=== PATIENT | male | born 1955 | race Caucasian/White ===

== ENCOUNTER → 2019-08-20 | Outpatient (CLI) | payer MEDICARE | END | disposition home or self-care (01) | LOC: LABPAT 15:43 | PROVIDERS: ATTEND Orthopaedic Surgery | DX: Z01.812 Encounter for preprocedural laboratory examination (principal) | CPT/HCPCS: 87070 ==

== ENCOUNTER → 2019-08-31 | Outpatient (CLI) | payer MEDICARE ==
[2019-08-31 11:19] LABS: Basophils % (A) 1 %; Eosinophils # (A) 0.1 k/uL (0-0.7); Eosinophils % (A) 3 %; HCT 39.4 % (39.0-53.0); HGB 13.8 gm/dL (13.0-17.5); Lymphocytes # (A) 0.8 k/uL (1.0-4.8); Lymphocytes % (A) 20 %; MCH 30.1 pg (25.0-35.0); MCHC 35.1 g/dL (31.0-37.0); MCV 85.7 fL (80.0-100.0); Monocytes # (A) 0.2 k/uL (0-1.0); Monocytes % (A) 6 %; Neutrophils # (A) 2.7 k/uL (1.3-7.7); Neutrophils % (A) 69 %; Platelet Count 175 k/uL (150-450); RBC 4.59 m/uL (4.30-5.90); RDW 13.2 % (11.5-15.5); WBC 3.9 k/uL (3.8-10.6)
[2019-08-31 11:21] LABS: ALT 35 U/L (21-72); AST 23 U/L (17-59); African American GFR (CKD) >90 (>60 ml/min/1.73 sqM); Albumin 4.4 g/dL (3.5-5.0); Alkaline Phosphatase 36 U/L (38-126); Anion Gap 8 mmol/L; Blood Urea Nitrogen 22 mg/dL (9-20); Calcium 9.7 mg/dL (8.4-10.2); Carbon Dioxide 29 mmol/L (22-30); Chloride 104 mmol/L (98-107); Glucose 94 mg/dL (74-99); Potassium 4.2 mmol/L (3.5-5.1); Sodium 141 mmol/L (137-145); Total Bilirubin 0.8 mg/dL (0.2-1.3); Total Protein 7.9 g/dL (6.3-8.2)
[2019-08-31 11:27] LABS: Prothrombin Time 10.6 sec (9.0-12.0)
[2019-08-31 11:29] LABS: Appearance,Urine Clear (Clear); Bilirubin,Urine Negative (Negative); Blood,Urine Negative (Negative); Color,Urine Yellow; Glucose,Urine (UA) Negative (Negative); Ketones,Urine Negative (Negative); Leukocyte Esterase,Urine Negative (Negative); Nitrite,Urine Negative (Negative); PH, Urine 5.5 (5.0-8.0); Protein,Urine Negative (Negative); Specific Gravity,Urine 1.025 (1.001-1.035); Urobilinogen,Urine <2.0 mg/dL (<2.0)
[2019-08-31 17:08] LABS: Hemoglobin A1C 5.4 % (4.0-6.0)
== END | disposition home or self-care (01) ==
LOC: LABWHC1 09:51
PROVIDERS: ATTEND Nurse Practitioner Family
DX: E11.9 Type 2 diabetes mellitus without complications (principal); Z79.01 Long term (current) use of anticoagulants
CPT/HCPCS: 36415; 80053; 81003; 83036; 85025; 85610

== ENCOUNTER 2019-09-08 06:44 | Inpatient (IN) | payer MEDICARE ==
[2019-09-02 16:09] VITALS: BMI 32.6
--- NOTE | 2019-09-07 15:25 | HP ---
HISTORY AND PHYSICAL CHIEF COMPLAINT: Left hip pain. HISTORY OF PRESENT ILLNESS: The patient is a 63-year-old retired gentleman who presents with progressive left hip pain for the past couple of years. It has worsened recently. He is having groin and thigh pain, worse with weightbearing activities. He has tried medications without much relief. He notes he has been limping. PAST MEDICAL HISTORY: Significant for arthritis, hypertension, pql-cusgpke-edaykurrq diabetes. PAST SURGICAL HISTORY: Significant for previous right shoulder fracture fixation. CURRENT MEDICATIONS: Lisinopril, Norvasc, Pravachol, and metformin. He denies drug allergies. FAMILY HISTORY: Significant for renal disease, diabetes, and hypertension. SOCIAL HISTORY: Negative for current tobacco or alcohol use. REVIEW OF SYSTEMS: A 16-point review of systems otherwise reviewed and is noncontributory. PHYSICAL EXAMINATION: On examination, patient is approximately 6 foot tall, 241 pounds of endomorphic habitus. HEENT: Exam is nonfocal. NECK: Supple. Passive motion left hip, flexion 50 degrees, external rotation with the hip flexed 50 degrees, internal rotation -10 degrees with pain. He is tender about the anterior aspect of his left hip. Clinically, he has 1 cm shortening left lower extremity compared to the right. He has a positive Trendelenburg gait. His distal neurovascular exam appears intact in left lower extremity. AP of the pelvis obtained in the office show severe left hip osteoarthrosis with bone- on-bone changes. IMPRESSION: 1. Left hip severe osteoarthrosis. 2. Increased body mass index. 3. Non xov-gqinisi-jnnyvlwdk diabetes. RECOMMENDATIONS: I talked to the patient at length regarding his condition along with treatment options. After a thorough discussion, he opts to proceed with surgery. We will plan to proceed with left total hip arthroplasty utilizing a direct anterior approach. Risks and benefits were discussed at length in layman's terms. We will institute DVT prophylaxis postoperatively. The patient underwent preoperative medical evaluation by Dr. Junior. RAMÓN / PAULINE: [id number] /
[~2019-09-08 06:44] MED LIST: ACETAMINOPHEN TAB 500 MG TAB PO ONE; DEXAMETHASONE SOD PHOSPHATE 10 MG/ML 1 ML VIAL IV ONE; HYDROmorphone 0.5 MG/0.5 ML SYRINGE IVP PRN; MELOXICAM 7.5 MG TAB PO ONE; MIDAZOLAM 2 MG/2 ML VIAL IV PRN; ONDANSETRON 4 MG/2 ML VIAL IVP ONE; SCOPOLAMINE 1.5MG/72HR PATCH TRANSDERM ONE; TRANEXAMIC ACID 1,000 MG in SODIUM CHLORIDE 0.9% 100 ML IVPB ONE
[2019-09-08] MEDS ORDERED: LIDOCAINE 1% 20 ML VIAL (10MG/ML) FOR IV START INTRADERMA ONE (07:40)
[2019-09-08 07:44] LABS: Glucose,Whole Blood 94 mg/dL (75-99)
[2019-09-08] MEDS: LACTATED RINGERS 1,000 ML IV SCH (07:45)
[2019-09-08] MEDS ORDERED: MIDAZOLAM 2 MG/2 ML VIAL ONE (08:00)
[2019-09-08] MEDS ORDERED: HEPARIN SODIUM,PORCINE 10,000 UNIT/ML 1 ML VIAL ONE (08:00)
[2019-09-08] MEDS ORDERED: fentaNYL (PF) 50 MCG/ML 2 ML AMP ONE (08:00)
[2019-09-08] MEDS ORDERED: SODIUM CHLORIDE 0.9% 100 ML BAG ONE (08:00)
[2019-09-08] MEDS ORDERED: SODIUM CHLORIDE 0.9% IRRIG 1,000 ML BTL IRRIGATION ONE (08:00)
[2019-09-08] MEDS ORDERED: TRANEXAMIC ACID 1,000 MG/10 ML VIAL ONE (08:00)
[2019-09-08] MEDS ORDERED: ePHEDrine SULFATE/0.9% NACL/PF 50 MG/5 ML SYRINGE IV ONE (08:00)
[2019-09-08] MEDS ORDERED: PHENYLEPHRINE-0.9% NACL SYG 1 MG/10 ML SYRINGE ONE (08:00)
[2019-09-08] MEDS ORDERED: PROPOFOL 10 MG/ML 20 ML VIAL IV ONE (08:00)
[2019-09-08] MEDS ORDERED: ceFAZolin 3,000 MG in SODIUM CHLORIDE 0.9% IRRIGATIO 3,000 ML IRRIGATION ONE (09:09)
[2019-09-08] MEDS ORDERED: LACTATED RINGERS 1,000 ML IV ONE (09:27)
[2019-09-08] MEDS ORDERED: HYDROcodone/APAP 5-325MG 1 EACH TAB PO PRN ×2 (10:35)
[2019-09-08] MEDS ORDERED: MAGNESIUM HYDROXIDE 2,400 MG/10 ML CUP PO PRN (10:35)
[2019-09-08] MEDS ORDERED: HYDROmorphone 1 MG/ML 1 ML SYRINGE IVP PRN (10:35)
[2019-09-08] MEDS ORDERED: HYDROmorphone 0.5 MG/0.5 ML SYRINGE IVP PRN (10:35)
[2019-09-08] MEDS ORDERED: NALOXONE 0.4 MG/ML 1 ML VIAL IV PRN (10:35)
[2019-09-08] MEDS ORDERED: traMADol 50 MG TAB PO PRN (10:35)
[2019-09-08] MEDS ORDERED: ONDANSETRON 4 MG/2 ML VIAL IVP PRN (10:35)
--- NOTE | 2019-09-08 11:00 | P.OP ---
Date of Procedure: 09/08/19 Preoperative Diagnosis: Severe left hip osteoarthrosis Postoperative Diagnosis: Same Procedure(s) Performed: Left total hip arthroplastyanterior approachpress-fit Implants: Depuy Corail size 12 standard press-fit collared femoral stem, 36 mm +5 cobalt chrome femoral head, 58 mm [place] acetabular shell with neutral polyethylene liner. Anesthesia: spinal Surgeon: Rick Vieira [employer] Operator #1: Marc Knott Estimated Blood Loss (ml): 600 Pathology: other (Femoral head) Condition: stable Disposition: PACU Indications for Procedure: The patient's a 63-year-old male who presents with progressive left hip pain secondary osteoarthrosis despite conservative measures. A discussion of the risks and benefits of operative intervention versus continued conservative measures was made with the patient. He opted to proceed with surgery. Operative risks to include infection, neurovascular injury, development of blood clots, possible fracture, leg length discrepancy, possible component loosening, possible instability and need for subsequent procedures was discussed. Informed consent was obtained. Operative Findings: As below Description of Procedure: The patient was brought to the operating room, and after induction of spinal anesthesia was placed supine on the Roxy table. Positioning was checked with fluoroscopy. The left hip was then prepped and draped in a normal fashion. A 12 cm incision was then made starting 2 fingerbreadths distal and 3 finger breaths posterior to the ASIS in line with the proximal femur. The skin was incised sharply. Subcutaneous tissues were divided sharply. Electrocautery was used for hemostasis. The fascia was split in line with skin incision. The interval between the sartorius and tensor fascia willow was then bluntly developed. The posterior fascia was opened with electrocautery. The lateral circumflex vessels were identified and cauterized prior to sectioning. A retractor was placed along the superior femoral neck as well as the anterior acetabular rim. A wide capsulotomy was performed. The neck cut was then made at a 45 angle to the shaft approximately 1 1/2 cm above the level of the lesser trochanter. The head was extracted. Attention was then paid towards preparing the acetabular. Anterior and posterior retractors were placed. The remaining capsular labral tissue sharply debrided clearly defining the acetabular margins. I began reaming with a 51 mm reamer taking care to initially medialize then reaming at 45 of abduction and 20 of anteversion. Sequential reaming is performed up to 57 mm. A trial D8 mm acetabular shell was inserted in the same orientation and was fully seated. There was good rim fit and stability. Positioning was checked with fluoroscopy. The final the eighth mm acetabular shell was inserted again at 45 of abduction and 20 of anteversion. This was fully seated. There was good rim fit and stability. Again fluoroscopy was used to check the adequacy of placement. A 6.5 mm x 30 mm cancellus screws placed posterior superior with good purchase. A neutral polyethylene liner was gently impacted. Care was taken to avoid any soft tissue interposition. Pulsatile lavage was utilized. Attention was then paid towards preparing the proximal femur. The central region was cleared of soft tissue. A canal finder was used to find the femoral canal. Sequential broaching was performed up to size 12 taking care to lateralize proximally. A calcar mill was used to fashion the medial calcar. There was good rotational stability. A standard neck along with a 36 mm +5 femoral head was placed. The hip was gently reduced. Fluoroscopy was used to check the adequacy of positioning along with leg lengths. I felt both were good. The hip was gently dislocated. The trial components were removed. The final size 12 collared standard press-fit femoral stem was inserted parallel to the posterior cortex. This was fully seated and there was good rotational stability. A 36 mm +5 cobalt chrome femoral head was placed. This was gently impacted. The hip was then gently reduced. Final fluoroscopic view showed adequate placement implant along with sabianist of leg length. Stability was checked with 80 of external rotation and 60 of extension of the right hip. The wound was irrigated with sterile lavage. The fascia was closed with running 0 Vicryl suture. There was minimal drainage therefore a deep drain was not placed. The second dose of IV TXA was given. The subcutaneous tissues were reapproximated interrupted 2-0 Vicryl sutures. The skin was reapproximated with 3-0 subcuticular strata fix suture. Skin tape and adhesive was applied. A sterile dressing was applied. The patient was then awoken from sedation and transferred to recovery room in good condition. Blood loss was estimated at 600 mL. 240 mL of Cell Saver was given back to the patient. No complications were incurred. Sponge and needle counts were correct at the end of the case. Jaydon GONZALEZ assisted during the major components is case to include exposure, bone resection, implantation, and closure.
[2019-09-08 11:06] LABS: Glucose,Whole Blood 107 mg/dL (75-99)
--- NOTE | 2019-09-08 11:21 | XR ---
EXAMINATION TYPE: XR Hip Limited LT DATE OF EXAM: 09/08/2019 CLINICAL HISTORY: Left hip pain and osteoarthritis. TECHNIQUE: Single AP portable view of left hip is obtained immediately postoperatively. COMPARISON: None. FINDINGS: Metallic hardware from left hip arthroplasty is seen and appears satisfactory in alignment and position. There is evidence of recent surgery with subcutaneous gas noted laterally. IMPRESSION: Metallic hardware from left hip arthroplasty is satisfactory in position.
[2019-09-08] MEDS: INSULIN ASPART (NovoLOG) 100 UNIT/ML VIAL SQ SCH ×4 (12:55→20:08)
--- NOTE | 2019-09-08 13:23 | XR ---
Limited left hip HISTORY: Anterior hip replacement 2 intraoperative C-arm images document the procedure.
--- NOTE | 2019-09-08 13:28 | FL ---
Fluoroscopy HISTORY: Anterior hip replacement 49 seconds fluoroscopy time supplied to the referring clinician. 2 intraoperative C-arm images docum ent the procedure. See dictated report from orthopedic surgery.
--- NOTE | 2019-09-08 14:27 | P.CONS ---
History of Present Illness - Reason for Consult Consult date: 09/08/19 Medical management - History of Present Illness This is a 63-year-old male patient of Dr. Messer with past medical history of hypertension, diabetes mellitus type 2. Patient has been brought into the hospital under the care of Dr. Vieira status post left hip arthroplasty, anterior approach. Patient states that his pain currently is well-controlled. He has had no nausea or vomiting. He is taking liquids without problems. Patient has been started on [place] and Dilaudid for pain control. PT and OT are in place. Xarelto in place for DVT prophylaxis. Patient is currently using incentive spirometry. Review of Systems Constitutional: Denies anorexia, Denies chills, Denies fatigue, Denies fever, Denies lethargy, Denies malaise, Denies poor appetite, Denies sweats Eyes: denies blurred vision, denies pain Ears, nose, mouth and throat: Denies dental pain, Denies dysphagia, Denies headache, Denies mouth pain, Denies nasal congestion, Denies nasal discharge, Denies sore throat, Denies vertigo Cardiovascular: Denies chest pain, Denies dyspnea on exertion, Denies edema, Denies leg edema, Denies lightheadedness, Denies orthopnea, Denies shortness of breath, Denies syncope Respiratory: Denies cough, Denies cough with sputum, Denies dyspnea, Denies excessive sputum, Denies hemoptysis, Denies home oxygen, Denies wheezing Gastrointestinal: Denies abdominal pain, Denies diarrhea, Denies loss of appetite, Denies nausea, Denies vomiting Genitourinary: Denies dysuria, Denies urinary frequency, Denies urinary retention Musculoskeletal: Denies frequent falls, Denies gait dysfunction, Denies muscle weakness, Denies myalgias Musculoskeletal: left: hip pain Integumentary: Reports wounds, Denies pruritus, Denies rash Neurological: Denies change in mentation, Denies change in speech, Denies gait dysfunction, Denies numbness, Denies seizures, Denies weakness Psychiatric: Denies anxiety, Denies depression Endocrine: Denies fatigue, Denies weight change Past Medical History Past Medical History: Diabetes Mellitus, GERD/Reflux, Hyperlipidemia, Hypertension, Osteoarthritis (OA) Additional Past Medical History / Comment(s): "borderline diabetic", History of Any Multi-Drug Resistant Organisms: None Reported Past Surgical History: Orthopedic Surgery Additional Past Surgical History / Comment(s): rt shoulder surgery, Past Anesthesia/Blood Transfusion Reactions: No Reported Reaction Past Psychological History: No Psychological Hx Reported Smoking Status: Never smoker Past Alcohol Use History: None Reported Additional Past Alcohol Use History / Comment(s): Patient is a lifelong nonsmoker, no illicit drug use, no alcohol use. Patient lives at home with significant other. Past Drug Use History: None Reported - Past Family History Mother Family Medical History: Cancer Additional Family Medical History / Comment(s): Mother is with history of coronary artery disease and diabetes. Father Additional Family Medical History / Comment(s): Father is with history of coronary artery disease and diabetes. Patient's 1 sister with no major medical problems and one brother with no major medical problems. Patient does not have any children. Medications and Allergies Home Medications Medication Instructions Recorded Confirmed Type Acetaminophen [Tylenol Extra 500 - 1,000 mg PO Q6HR PRN 09/02/19 09/08/19 History Strength] Cinnamon Bark [Cinnamon] 500 mg PO HS 09/02/19 09/08/19 History Glucosam/Chond/Hyalu/Cf Borate 1 each PO HS 09/02/19 09/08/19 History [Move Free Joint Health Tablet] Lisinopril-Hctz 20-25 mg 1 tab PO DAILY 09/02/19 09/08/19 History [Zestoretic 20-25] Pravastatin Sodium [Pravachol] 40 mg PO HS 09/02/19 09/08/19 History amLODIPine [Norvasc] 5 mg PO PC-SUPPER 09/02/19 09/08/19 History metFORMIN HCL 500 mg PO BID 09/02/19 09/08/19 History Allergies Allergy/AdvReac Type Severity Reaction Status Date / Time No Known Allergies Allergy Verified 09/08/19 07:02 Physical Exam Vitals: Vital Signs Temp Pulse Pulse Resp BP BP Pulse Ox 09/08/19 12:15 97.8 F 46 L 12 121/66 97 09/08/19 11:45 62 16 125/69 94 L 09/08/19 11:30 65 16 125/70 95 09/08/19 11:15 62 16 117/59 93 L 09/08/19 11:00 67 16 124/67 96 09/08/19 10:52 97.1 F L 64 14 116/63 96 09/08/19 07:07 97.6 F 66 18 114/70 97 Intake and Output 09/07/19 09/08/19 09/08/19 22:59 06:59 14:59 Intake Total 1875 Output Total 600 Balance 1275 Intake: IV 1875 Output: Estimated Blood Loss 600 Other: Weight 107.955 kg Gen: This is a 63-year-old male. Patient is resting bed and appears to become 12 and in no acute distress. HEENT: Head is atraumatic, normocephalic. Pupils equal, round. Sclerae is anicteric. NECK: Supple. No JVD. No lymphadenopathy. No thyromegaly. LUNGS: Clear to auscultation. No wheezes or rhonchi. No intercostal retractions. HEART: Regular rate and rhythm. No murmur. ABDOMEN: Soft. Bowel sounds are present. No masses. No tenderness. EXTREMITIES: No pedal edema. No calf tenderness. Dressing in place an ice pack to the left hip area, no breakthrough bleeding or drainage. Dorsalis pedis +2 bilaterally. NEUROLOGICAL: Patient is awake, alert and oriented x3. Cranial nerves 2 through 12 are grossly intact. Results Labs: Abnormal Lab Results - Last 24 Hours (Table) 09/08/19 Range/Units 11:00 POC Glucose (mg/dL) 107 H (75-99) mg/dL Assessment and Plan Plan: 1. Osteoarthritis status post left hip arthroplasty, anterior approach. Continue current pain management, Xarelto for DVT prophylaxis, incentive spirometry to reduce incidence of atelectasis and hospital-acquired pneumonia. 2. Hypertension. Continue amlodipine 5 mg at supper with parameters. Hold lisinopril/hydrochlorothiazide. 3. Diabetes mellitus type 2. Accu-Cheks, NovoLog scale. Metformin on hold. 4. DVT prophylaxis. Xarelto. 5. GI prophylaxis. Pepcid. Discharge plan: Patient is interested in rehab at [facility] and would like more in formation. Social work consult placed. Anticipate discharge tomorrow Impression and plan of care have been directed as dictated by the signing physician. Yara Lazo nurse practitioner acting as scribe for signing physician.
[2019-09-08 18:12] LABS: Glucose,Whole Blood 224 mg/dL (75-99)
[2019-09-08] MEDS ORDERED: amLODIPine 5 MG TAB PO SCH (18:30)
[2019-09-08] MEDS: metFORMIN 500 MG TAB PO SCH (20:02)
[2019-09-08 20:14] LABS: Glucose,Whole Blood 252 mg/dL (75-99)
[2019-09-08] MEDS ORDERED: SENNOSIDES-DOCUSATE SODIUM 1 EACH TAB PO SCH (21:00)
[2019-09-08] MEDS ORDERED: PRAVASTATIN SODIUM 40 MG TAB PO SCH (21:00)
[2019-09-08] MEDS: ACETAMINOPHEN TAB 325 MG TAB PO PRN (23:26)
[2019-09-09] MEDS: LACTATED RINGERS 1,000 ML IV SCH (00:07)
[2019-09-09 07:06] LABS: Glucose,Whole Blood 147 mg/dL (75-99)
[2019-09-09] MEDS: INSULIN ASPART (NovoLOG) 100 UNIT/ML VIAL SQ SCH ×2 (07:21→14:17)
[2019-09-09] MEDS: metFORMIN 500 MG TAB PO SCH (07:21)
[2019-09-09 08:05] LABS: Basophils % (A) 0 %; Eosinophils % (A) 0 %; HCT 36.6 % (39.0-53.0); HGB 12.3 gm/dL (13.0-17.5); Lymphocytes # (A) 0.7 k/uL (1.0-4.8); Lymphocytes % (A) 9 %; MCHC 33.7 g/dL (31.0-37.0); Mean Platelet Volume 6.4; Monocytes # (A) 0.4 k/uL (0-1.0); Monocytes % (A) 5 %; Neutrophils # (A) 6.5 k/uL (1.3-7.7); Neutrophils % (A) 84 %; Platelet Count 198 k/uL (150-450); RBC 3.97 m/uL (4.30-5.90); RDW 13.3 % (11.5-15.5); WBC 7.8 k/uL (3.8-10.6)
[2019-09-09 08:20] LABS: MCV 92.2 fL (80.0-100.0)
[2019-09-09 08:43] VITALS: BP 120/69; PULSE 71; RESP 12; TEMP 98.5
[2019-09-09] MEDS ORDERED: RIVAROXABAN 10 MG TAB PO SCH (09:00)
[2019-09-09] MEDS ORDERED: FAMOTIDINE 20 MG TAB PO SCH (09:00)
--- NOTE | 2019-09-09 10:40 | P.PN ---
Subjective Progress Note Date: 09/09/19 Principal diagnosis: Status post direct anterior left total hip arthroplasty Patient evaluated at bedside, his is present. He is ambulating well with therapy. His pain is well-controlled. He denies any chest pain or shortness of breath. Objective - Vital Signs Vital signs: Vital Signs Temp 98.5 F 09/09/19 07:00 Pulse 71 09/09/19 07:00 Resp 12 09/09/19 07:00 BP 120/69 09/09/19 07:00 Pulse Ox 97 09/09/19 07:00 Intake & Output 09/08/19 09/09/19 09/09/19 18:59 06:59 18:59 Intake Total 2355 840 Output Total 600 Balance 1755 840 Weight 107.955 kg Intake: IV 1875 Intake, IV Titration 840 Amount ceFAZolin 2 gm In Sodium 840 Chloride 0.9% 50 ml @ 100 mls/hr IVPB ONCE ONE Rx# :[id number] Oral 480 Output: Estimated Blood Loss 600 Other: Voiding Method Toilet Toilet # Voids 1 - Exam Left lower extremity: Incision is clean, dry, and intact. The exofin fusion tape is in good condition. There is minimal soft tissue swelling and ecchymosis surrounding the medial and lateral aspects of the incision. Calf is soft, no tenderness with palpation. Plantar flexion, dorsiflexion, EHL, FHL are intact. Sensory exam to light touch throughout the extremity is intact, dorsal pedis pulses 2+. - Labs CBC & Chem 7: 09/09/19 07:00 Labs: Abnormal Lab Results - Last 24 Hours (Table) 09/08/19 09/08/19 09/08/19 Range/Units 11:00 18:01 20:03 RBC (4.30-5.90) m/uL Hgb (13.0-17.5) gm/dL Hct (39.0-53.0) % Lymphocytes # (1.0-4.8) k/uL POC Glucose (mg/dL) 107 H 224 H 252 H (75-99) mg/dL 09/09/19 09/09/19 Range/Units 06:44 07:00 RBC 3.97 L (4.30-5.90) m/uL Hgb 12.3 L (13.0-17.5) gm/dL Hct 36.6 L (39.0-53.0) % Lymphocytes # 0.7 L (1.0-4.8) k/uL POC Glucose (mg/dL) 147 H (75-99) mg/dL Assessment and Plan Plan: Assessment: Postop day #1 status post direct anterior left total hip arthroplasty Plan: Pain control, we'll discharge home on oral medication GI and DVT prophylaxis, Eliquis 2.5mg bid Wound care instructions discussed Medical recommendations Home physical therapy and nursing after discharge Discharge home today Time with Patient: Less than 30
--- NOTE | 2019-09-09 10:42 | P.DS ---
Providers Date of admission: 09/08/19 06:44 Expected date of discharge: 09/09/19 Attending physician: Rick Vieira Consults: 09/08/19 10:35 Consult Physician Routine Consulting Provider: Bryant Junior Reason/Comments: medical management Do you want consulting provider notified?: Yes Primary care physician: Bryant Junior [facility] Hospital Course: Date of admission: 09/08/2019 Date of discharge: 09/09/2019 Admission diagnosis: Status post direct anterior left total hip arthroplasty Discharge diagnosis: Same Attending physician: Dr. Vieira Surgical procedures: Direct anterior left total hip arthroplasty Brief history: Patient is a 63-year-old male with a history of progressive primary left hip osteoarthritis. At this point patient has failed conservative treatment measures and has opted to proceed with a elective direct anterior left total hip arthroplasty. Hospital course: Details of patient's surgery can be found in operative report. Patient tolerated the procedure well and was subsequently transported to orthopedic floor. Patient's orthopeidc and medical care was provided daily. Patient had daily laboratory tests performed for evaluation of overall blood cou nts. Patient had daily physical therapy to include strengthening range of motion as well as education with walker ambulation. Patient was treated with Xarelto for their postoperative DVT prophylaxis during their inpatient stay. Patient was noted to have a relatively uneventful postoperative course. Patient reported satisfactory pain control with oral pain medications by postoperative day 0. Patient showed satisfactory progress with physical therapy. Patient moved steadily through the program and had no difficulty meeting the goals by postoperative day 1. Given patient's otherwise satisfactory course and having met physical therapy goals, plan is to discharge patient home on postoperative day 1. Discharge condition/disposition: Patient will be discharged home in stable condition. Discharge medications: Instructions are given on resumption of patient's normal daily medications per primary care recommendation, in addition patient will be prescribed Addy 5 mg/325 mg, Colace 100 mg, Eliquis 2.5mg. Discharge instructions: 1. Wound care and infection precautions, keep incision dry and covered while showering, no lotions, creams, moisturizers. No soaking, tubs, pools, hottubs. D o not scrub over the incision. 2. Weight-bear as tolerated with walker / cane until follow-up. 3. Ice and elevate when necessary. Do not exceed 20 minutes per hour with ice pack. 4. Utilize compression sleeve until seen at first follow up appointment. 5. Visiting nursing care. 6. Home physical therapy. 7. Pain meds and anticoagulants per prescription. 8. Pain medication has potential to cause constipation. Increase oral fluid and fiber intake. Contact primary care provider if you have not had a bowel movement within 48 hours after discharge 9. No anti-inflammatory medication until discussed at first post operative visit, this including Motrin, Aleve, Mobic, Diclofenac. 10. Follow up in office at 2 weeks postop with Jaydon Knott PA-C 11. Follow up with your primary care doctor 7-10 days after discharge. 12. Contact [facility] with any questions, . Procedures: Direct anterior left total hip arthroplasty Patient Condition at Discharge: Good Plan - Discharge Summary Discharge Rx Participant: Yes New Discharge Prescriptions: New Docusate [Colace] 100 mg PO DAILY #30 capsule Apixaban [Eliquis] 2.5 mg PO BID #60 tab Hydrocodone/Acetaminophen [Addy 5-325] 1 - 2 each PO Q6HR PRN #40 tab PRN Reason: Pain Continue metFORMIN HCL 500 mg PO BID Lisinopril-Hctz 20-25 mg [Zestoretic 20-25] 1 tab PO DAILY Pravastatin Sodium [Pravachol] 40 mg PO HS Cinnamon Bark [Cinnamon] 500 mg PO HS amLODIPine [Norvasc] 5 mg PO PC-SUPPER Glucosam/Chond/Hyalu/Cf Borate [Move Free Joint Health Tablet] 1 each PO HS Acetaminophen [Tylenol Extra Strength] 500 - 1,000 mg PO Q6HR PRN PRN Reason: Pain Discharge Medication List Acetaminophen [Tylenol Extra Strength] 500 - 1,000 mg PO Q6HR PRN 09/02/19 [History] Cinnamon Bark [Cinnamon] 500 mg PO HS 09/02/19 [History] Glucosam/Chond/Hyalu/Cf Borate [Move Free Joint Health Tablet] 1 each PO HS 09/02/19 [History] Lisinopril-Hctz 20-25 mg [Zestoretic 20-25] 1 tab PO DAILY 09/02/19 [History] Pravastatin Sodium [Pravachol] 40 mg PO HS 09/02/19 [History] amLODIPine [Norvasc] 5 mg PO PC-SUPPER 09/02/19 [History] metFORMIN HCL 500 mg PO BID 09/02/19 [History] Apixaban [Eliquis] 2.5 mg PO BID #60 tab 09/09/19 [Rx] Docusate [Colace] 100 mg PO DAILY #30 capsule 09/09/19 [Rx] Hydrocodone/Acetaminophen [Addy 5-325] 1 - 2 each PO Q6HR PRN #40 tab 09/09/19 [Rx] Follow up Appointment(s)/Referral(s): Bryant Junior MD [Primary Care Provider] - 1 Week (Office will call pt with appt.) Marc Knott PAC [PHYSICIAN COFFEE ROASTER HELPER] - 09/23/19 3:50 pm Activity/Diet/Wound Care/Special Instructions: Orthopedic Discharge Instructions: 1. Wound care and infection precautions, keep incision dry and covered while showering, no lotions, creams, moisturizers. No soaking, pools, hot tubs. Do not scrub over incision. 2. Weight-bear as tolerated with walker / cane until follow-up. 3. Ice and elevate when necessary. Do not exceed 20 minutes per hour with ice pack. 4. Utilize compression sleeve until seen at first follow up appointment. 5. Pain meds and anticoagulants per prescription. 6. Pain medication has potential to cause constipation. Increase oral fluid and fiber intake. Contact primary care provider if you have not had a bowel movement within 48 hours after discharge. 7. No anti-inflammatory medication until discussed at first post operative visit, this including Motrin, Aleve, Mobic, Diclofenac. 8. Follow up in office at 2 weeks postop with Jaydon Knott PA-C 9. Follow up with your primary care doctor 7-10 days after discharge. 10. Contact [facility] with any questions, . Discharge Disposition: HOME WITH HOME HEALTH SERVICES
[2019-09-09] MEDS: ACETAMINOPHEN TAB 325 MG TAB PO PRN (13:42)
--- NOTE | 2019-09-09 14:09 | P.PN ---
Subjective Progress Note Date: 09/09/19 This is a 63-year-old male patient of Dr. Messer with past medical history of hypertension, diabetes mellitus type 2. Patient has been brought into the hospital under the care of Dr. Vieira status post left hip arthroplasty, anterior approach. Patient states that his pain currently is well-controlled. He has had no nausea or vomiting. He is taking liquids without problems. Patient has been started on [place] and Dilaudid for pain control. PT and OT are in place. Xarelto in place for DVT prophylaxis. Patient is currently using incentive spirometry. 09/09: Patient has been afebrile, heart rate 71, blood pressure 120/69, pulse ox 97% on room air. Blood sugars were elevated during the night and patient was started back on metformin. Patient is been seen by orthopedics this morning and is scheduled for discharge home. Patient states that his pain is well controlled. He has worked with physical therapy. He is planning returning home today. Medication reconciliation will be reviewed. Review of Systems Constitutional: Denies anorexia, Denies chills, Denies fatigue, Denies fever, Denies lethargy, Denies malaise, Denies poor appetite Eyes: denies blurred vision, denies pain Ears, nose, mouth and throat: Denies dental pain, Denies dysphagia, Denies headache, Denies mouth pain, Denies nasal congestion, Denies nasal discharge, Denies sore throat, Denies vertigo Cardiovascular: Denies chest pain, Denies dyspnea on exertion, Denies edema, Denies leg edema, Denies lightheadedness, Denies orthopnea, Denies shortness of breath, Denies syncope Respiratory: Denies cough, Denies cough with sputum, Denies dyspnea, Denies excessive sputum, Denies hemoptysis Gastrointestinal: Denies abdominal pain, Denies diarrhea, Denies loss of appetite, Denies nausea, Denies vomiting Genitourinary: Denies dysuria, Denies urinary frequency, Denies urinary retention Musculoskeletal: Denies frequent falls, Denies gait dysfunction, Denies muscle weakness, Denies myalgias Musculoskeletal: left: hip pain Integumentary: Reports wounds, Denies pruritus, Denies rash Neurological: Denies change in mentation, Denies change in speech, Denies gait dysfunction, Denies numbness, Denies seizures, Denies weakness Psychiatric: Denies anxiety, Denies depression Endocrine: Denies fatigue, Denies weight change Objective - Vital Signs Vital signs: Vital Signs Temp 98.5 F 09/09/19 07:00 Pulse 71 09/09/19 07:00 Resp 12 09/09/19 07:00 BP 120/69 09/09/19 07:00 Pulse Ox 97 09/09/19 07:00 Intake & Output 09/08/19 09/09/19 09/09/19 18:59 06:59 18:59 Intake Total 2355 840 Output Total 600 Balance 1755 840 Weight 107.955 kg Intake: IV 1875 Intake, IV Titration 840 Amount ceFAZolin 2 gm In Sodium 840 Chloride 0.9% 50 ml @ 100 mls/hr IVPB ONCE ONE Rx# :[id number] Oral 480 Output: Estimated Blood Loss 600 Other: Voiding Method Toilet Toilet # Voids 1 - Exam Gen: This is a 63-year-old male. Patient is resting in chair and appears to be comfortable and in no acute distress. HEENT: Head is atraumatic, normocephalic. Pupils equal, round. Sclerae is anicteric. NECK: Supple. No JVD. No lymphadenopathy. No thyromegaly. LUNGS: Clear to auscultation. No wheezes or rhonchi. No intercostal retractions. HEART: Regular rate and rhythm. No murmur. ABDOMEN: Soft. Bowel sounds are present. No masses. No tenderness. EXTREMITIES: No pedal edema. No calf tenderness. Dressing in place an ice pack to the left hip area, no breakthrough bleeding or drainage. Dorsalis pedis +2 bilaterally. NEUROLOGICAL: Patient is awake, alert and oriented x3. Cranial nerves 2 through 12 are grossly intact. - Labs CBC & Chem 7: 09/09/19 07:00 Labs: Abnormal Lab Results - Last 24 Hours (Table) 09/08/19 09/08/19 09/09/19 Range/Units 18:01 20:03 06:44 RBC (4.30-5.90) m/uL Hgb (13.0-17.5) gm/dL Hct (39.0-53.0) % Lymphocytes # (1.0-4.8) k/uL POC Glucose (mg/dL) 224 H 252 H 147 H (75-99) mg/dL 09/09/19 Range/Units 07:00 RBC 3.97 L (4.30-5.90) m/uL Hgb 12.3 L (13.0-17.5) gm/dL Hct 36.6 L (39.0-53.0) % Lymphocytes # 0.7 L (1.0-4.8) k/uL POC Glucose (mg/dL) (75-99) mg/dL Assessment and Plan Plan: 1. Osteoarthritis status post left hip arthroplasty, anterior approach. Continue current pain management, Xarelto for DVT prophylaxis, incentive spirometry to reduce incidence of atelectasis and hospital-acquired pneumonia. 2. Hypertension. Continue amlodipine 5 mg at supper with parameters. Hold lisinopril/hydrochlorothiazide. 3. Diabetes mellitus type 2. Accu-Cheks, NovoLog scale. Metformin resumed. 4. DVT prophylaxis. Xarelto. 5. GI prophylaxis. Pepcid. Discharge plan: Home with [facility] Impression and plan of care have been directed as dictated by the signing physician. Yara Lazo nurse practitioner acting as scribe for signing physician.
== END 2019-09-09 14:41 | disposition home health service (06) | DRG 470 ==
LOC: 2ORMAIN 06:44 → 4SSUR 10:56
PROVIDERS: ADMIT Orthopaedic Surgery; ATTEND Orthopaedic Surgery
PROC: 0SRB02A Replacement of Left Hip Joint with Metal on Polyethylene Synthetic Substitute, Uncemented, Open Approach (ICD-10-PCS; principal; 2019-09-08 08:00)
DX: M16.12 Unilateral primary osteoarthritis, left hip (principal); J67.0 Farmer's lung; E11.9 Type 2 diabetes mellitus without complications; E78.5 Hyperlipidemia, unspecified; I10 Essential (primary) hypertension; K21.9 Gastro-esophageal reflux disease without esophagitis; E78.00 Pure hypercholesterolemia, unspecified; N40.0 Benign prostatic hyperplasia without lower urinary tract symptoms; Z79.84 Long term (current) use of oral hypoglycemic drugs; Z79.899 Other long term (current) drug therapy; Z82.49 Family history of ischemic heart disease and other diseases of the circulatory system; Z83.3 Family history of diabetes mellitus; Z84.1 Family history of disorders of kidney and ureter; Z80.9 Family history of malignant neoplasm, unspecified
CPT/HCPCS: 73501; 85025; 86850; 86891; 86900; 86901; 88300